=== PATIENT | female | born 1990 | race African-American/Black ===

== ENCOUNTER 2020-07-31 15:28 | Emergency (ER) | payer OTHER, SELFPAY ==
[2020-07-31 16:07] VITALS: BP 118/80; PULSE 100; RESP 20; TEMP 36.1; O2SAT 99
--- NOTE | 2020-07-31 17:22 | PC.NURSE ---
Pt came up to nurses station and asked how many people are in front of her. She states I thought covid was urgent! jennie been waiting for hours and you haven't done anything! I stated that we triaged her and her vitals are stable and that we would get her back as soon as possible. Pt states she was leaving. Pt ambulated to the exit with no difficulty
== END 2020-07-31 17:22 | disposition left against medical advice (07) ==
LOC: ANHED 17:35
DX: R05 Cough (principal)
CPT/HCPCS: 99199

== ENCOUNTER 2021-02-07 00:14 | Emergency (ER) | payer OTHER, SELFPAY ==
[2021-02-07 00:28] VITALS: BP 104/68; PULSE 68; RESP 18; TEMP 37.3; O2SAT 100
[2021-02-07 02:23] VITALS: BP 118/77; PULSE 73; RESP 18; O2SAT 100
[2021-02-07] MEDS: SODIUM CHLORIDE 0.9% IV 1,000 ML 999 ML IV CONT (02:59)
[2021-02-07] MEDS: ONDANSETRON INJ 4 MG/2 ML VIAL IV PUSH (02:59)
[2021-02-07 03:12] LABS: Basophils Percent Auto 0.5 % (0.2-1.2); Eosinophils Absolute Auto 0.1 K/mm3 (0-0.3); Eosinophils Percent Auto 2.5 % (0-4.4); Hematocrit 38.4 % (37.0-47.0); Hemoglobin 12.9 g/dL (12.0-15.0); Immature Granulocyte Absolute 0.02 K/mm3 (0.00-0.031); Immature Granulocyte Percent A 0.4 % (0-0.5); Lymphocytes Absolute Auto 1.77 K/mm3 (0.9-3.2); Lymphocytes Percent Auto 31.7 % (18.3-44.2); Mean Corpuscular HGB Conc 33.6 g/dl (32-36); Mean Corpuscular Hemoglobin 29.8 pg (26-34); Mean Corpuscular Volume 88.7 fl (80-100); Mean Platelet Volume 9.3 fl (7.4-10.4); Monocytes Absolute Auto 0.5 K/mm3 (0.1-0.6); Monocytes Percent Auto 8.4 % (2.6-8.5); Neutrophils Absolute Auto 3.2 K/mm3 (1.3-6.7); Neutrophils Percent Auto 56.5 % (45.5-73.1); Platelet Count Result 283 k/mm3 (150-375); Red Blood Count 4.33 M/mm3 (4.2-5.4); Red Cell Distribution Width 14.2 % (11.5-14.5); White Blood Count 5.6 K/mm3 (4.5-10.0)
--- NOTE | 2021-02-07 03:14 | ED.NAVMDI ---
HPI - Nausea/Vomiting/Diarrhea General Chief complaint: Nausea/Vomiting/Diarrhea Stated complaint: N/V Time Seen by Provider: 02/07/21 02:30 Source: patient History of Present Illness HPI Narrative: Patient presents with nausea vomiting and diarrhea. Reports he had symptoms for the past couple days and has not been able to keep anything down she was concerned so she came to the ER for evaluation. Reports lower abdominal cramping without any clear aggravating or alleviating factors, no radiation. She has not urinary symptoms or vaginal bleeding. Denies any known sick contacts she denies fevers or chills. Her primary concern is that she got a stomach infection or maybe she had food poisoning. Related Data Allergies Allergy/AdvReac Type Severity Reaction Status Date / Time No Known Allergies Allergy Unverified 06/05/16 11:16 Review of Systems Review of Systems: CONSTITUTIONAL: Denies fever, chills, or sweats. EYES: Denies visual changes, redness, or discharge. ENT: Denies rhinorrhea, congestion, sore throat, or otalgia. CARDIOVASCULAR: Denies chest pain, palpitations, or edema. RESPIRATORY: Denies cough or dyspnea. GASTROINTESTINAL: Denies abdominal pain, nausea, vomiting, or diarrhea. GENITOURINARY: Denies dysuria or hematuria. SKIN: Denies rash or itching. MUSCULOSKELETAL: Denies back pain, joint pain, or myalgia. NEUROLOGIC: Denies headache, numbness, dizziness, or weakness. PSYCHIATRIC: Denies anxiety or depression. All systems reviewed & are unremarkable except as noted in HPI and below PMFSH Past Medical History Medical History Social History Social History (Updated 02/07/21 @ 03:26 by Suresh Gil MD) Smoking status: Current some day smoker Alcohol intake: current Substance use: never Exam Narrative: GENERAL: Well-appearing, well-nourished, and in no acute distress. HEAD: Normocephalic, atraumatic. EYES: PERRLA and EOMI. ENT: Nares clear, no rhinorrhea or epistaxis. Mucous membranes moist. NECK: Supple. No masses. No JVD CHEST: Clear to auscultation. No respiratory distress. No wheezes rales or rhonchi HEART: Regular rate and rhythm. No murmur heard. Normal peripheral pulses. ABDOMEN: Soft, nontender, nondistended, normal active bowel sounds. EXTREMITIES: Normal range of motion. No edema. SKIN: Warm, dry, no rash. NEURO: No focal deficits. Alert and oriented x3. PSYCH: Normal mood and affect. Course Reevaluation(s) Reevaluation #1: Patient reports feeling much improved results and plan reviewed with patient. Patient comfortable with outpatient plan. Date: 02/07/21 Time: 03:57 Vital Signs Vital signs: Vital Signs Temperature 37.3 C 02/07/21 00:28 Pulse Rate 68 02/07/21 00:28 Respiratory Rate 18 02/07/21 00:28 Blood Pressure 104/68 02/07/21 00:28 Pulse Oximetry 100 02/07/21 00:28 Temperature 37.3 C 02/07/21 00:28 Pulse Rate 72 02/07/21 04:25 Respiratory Rate 18 02/07/21 04:25 Blood Pressure 117/70 02/07/21 04:25 Pulse Oximetry 98 02/07/21 04:25 MDM - Nausea/Vomiting/Diarrhea MDM Narrative Medical decision making narrative: H&P as above, vss, pt looks clinically well, exam with nonacute abdomen, labs clinically unremarkable,additional labs/img considered, symptomatic relief available as needed, on reevaluation pt continues to looks clinically well. Suspect viral process versus foodborne illness, dns pancreatitis, cholecystitis, appendicitis, severe dehydration. plan to tx/monitor as op w/ pcm f/u findings/plan discussed with pt, pt agree/comfortable with plan, return precautions given Lab Data Result diagrams: 02/07/21 02:58 02/07/21 02:58 Labs: Lab Results 02/07/21 02/07/21 02/07/21 Range/Units 02:51 02:58 02:58 WBC 5.6 (4.5-10.0) K/mm3 RBC 4.33 (4.2-5.4) M/mm3 Hgb 12.9 (12.0-15.0) g/dL Hct 38.4 (37.0-47.0) % MCV 88.7 (80-100)
[2021-02-07 03:21] LABS: Add Urine Microscopic? YES; Appearance Urine Cloudy (Clear); Bacteria Urine Trace /hpf; Bilirubin Urine Negative (Negative); Blood Urine Negative (Negative); Color Urine Yellow (Yellow); Glucose Urine UA Negative (Negative); Ketones Urine 1+ mg/dL (Negative); Leukocyte Esterase Ur Negative LEU/UL (Negative); Mucus Urine Moderate /lpf; Nitrate Urine Negative (Negative); Protein Urine Negative (Negative); Specific Grav Ur 1.023 (1.001-1.035); Squamous Epithelial Cell Urine Many /hpf (Few)
[2021-02-07 03:33] LABS: Alanine Aminotransferase 12 U/L (4-35); Albumin Level 4.2 g/dL (3.5-5.1); Alkaline Phosphatase 65 U/L (38-126); Anion Gap 9 mmol/L (8-16); Aspartate Amino Transferase 21 U/L (14-36); Bilirubin,Total 0.4 mg/dL (0.2-1.3); Blood Urea Nitrogen 9 mg/dL (7-17); Calcium 8.9 mg/dL (8.4-10.2); Carbon Dioxide 22 mmol/L (22-30); Chloride 108 mmol/L (98-107); Estimated CRCL calculation 78 ml/min; Estimated Glomerular Filt Rate > 60; Glucose 93 mg/dL (65-110); Lipase 60 U/L (23-300); Potassium 3.9 mmol/L (3.4-5.0); Sodium 139 mmol/L (137-145)
[2021-02-07 04:25] VITALS: BP 117/70; PULSE 72; RESP 18; O2SAT 98
== END 2021-02-07 04:28 | disposition home or self-care (01) ==
PROVIDERS: Emergency Provider Emergency Medicine
DX: R11.2 Nausea with vomiting, unspecified (principal); R19.7 Diarrhea, unspecified; R10.9 Unspecified abdominal pain; F17.210 Nicotine dependence, cigarettes, uncomplicated
CPT/HCPCS: 36415; 80053; 81001; 81025; 83690; 85025; 87086; 87088; 96361; 96374; 99284; J2405; J7030